=== PATIENT | male | born 1995 | race Caucasian/White ===

== ENCOUNTER 2016-09-20 11:14 | Emergency (ER) | payer OTHER ==
[~2016-09-20] VITALS: Ht 193 cm; Wt 86.4 kg
[~2016-09-20 11:14] MED LIST: OMEP40CA2 PO; VERA27.5; XYZASOL2 PO
[2016-09-20] MEDS ORDERED: AMOX875T2 (11:27)
[2016-09-20] MEDS ORDERED: NS 1,000 ML IV ONE (12:00)
[2016-09-20] MEDS ORDERED: ONDANSETRON 4MG/2ML VIAL (J2405) IV ONE (12:00)
[2016-09-20] MEDS ORDERED: KETOROLAC 30 MG/ML VIAL (J1885) IV ONE (12:00)
[2016-09-20 12:26] LABS: BASO # 0.1 K/mm3 (0.0-0.2); BASO % 1.1 % (0.0-1.0); EOS % 0.5 % (0.0-3.0); LARGE UNSTAINED CELL # 0.2 K/mm3 (0.0-0.4); LARGE UNSTAINED CELL % 1.4 % (0.0-4.0); LYMPH % 6.8 % (24.0-44.0); MEAN CORPUSCULAR HEMOGLOBIN 29.5 pg (27.0-33.0); MEAN CORPUSCULAR VOLUME 86.9 fl (80.0-96.0); MONO # 1.1 K/mm3 (0.0-0.8); MONO % 9.6 % (0.0-5.0); NEUTROPHILS # 9.4 K/mm3 (1.8-7.7); NEUTROPHILS % 80.6 % (36.0-66.0); PLATELET COUNT, AUTOMATED 204 k/mm3 (150-450); RED CELL DISTRIBUTION WIDTH 12.6 % (11.5-14.5); WHITE BLOOD COUNT 11.7 K/mm3 (4.0-10.0)
[2016-09-20 12:48] LABS: CONTROL LINE MONO INT CTR LINE PRESENT
[2016-09-20 12:54] LABS: ALBUMIN 4.3 GM/DL (3.2-5.2); ALBUMIN/GLOBULIN RATIO 1.34 (1.00-1.93); ALKALINE PHOSPHATASE 105 U/L (45-117); ALT/SGPT 28 U/L (12-78); ANION GAP 9 MEQ/L (8-16); AST/SGOT 14 U/L (15-37); BILIRUBIN,DIRECT 0.3 MG/DL (0.0-0.2); BILIRUBIN,TOTAL 1.1 MG/DL (0.2-1.0); BLOOD UREA NITROGEN 9 MG/DL (7-18); CALCIUM LEVEL 9.4 MG/DL (8.5-10.1); CARBON DIOXIDE LEVEL 27 MEQ/L (21-32); CHLORIDE LEVEL 103 MEQ/L (98-107); CREATININE FOR GFR 0.99 MG/DL (0.70-1.30); GLUCOSE, FASTING 105 MG/DL (70-105); POTASSIUM SERUM 4.1 MEQ/L (3.5-5.1); SODIUM LEVEL 139 MEQ/L (136-145); TOTAL PROTEIN 7.5 GM/DL (6.4-8.2)
[2016-09-20 13:20] VITALS: BP 127/60
== END 2016-09-20 13:26 | disposition home or self-care (01) ==
LOC: M ED 11:14
DX: B34.9 Viral infection, unspecified (principal); K21.9 Gastro-esophageal reflux disease without esophagitis; J30.2 Other seasonal allergic rhinitis; F17.200 Nicotine dependence, unspecified, uncomplicated; Z79.899 Other long term (current) drug therapy; Z88.2 Allergy status to sulfonamides
CPT/HCPCS: 80048; 80076; 85025; 86308; 96361; 96374; 96375; 99283; J1885; J2405

== ENCOUNTER 2017-09-17 13:41 | Emergency (ER) | payer OTHER ==
[2017-09-17] MEDS: dexameTHASONE 20 MG/5 ML VIAL (J1100) IM (15:41)
[2017-09-17 16:17] LABS: CONTROL LINE MONO INT CTR LINE PRESENT; MONO SCRN NEGATIVE (NEGATIVE)
== END 2017-09-17 16:02 | disposition home or self-care (01) ==
LOC: M ED 13:41
DX: J02.9 Acute pharyngitis, unspecified (principal); L08.9 Local infection of the skin and subcutaneous tissue, unspecified; Z79.899 Other long term (current) drug therapy; Z88.1 Allergy status to other antibiotic agents; Z88.2 Allergy status to sulfonamides
CPT/HCPCS: J1100

== ENCOUNTER → 2019-01-29 | Outpatient (REF) | payer OTHER ==
[~2019-01-29] MED LIST changes: +AMOX875T2; +BACT2CRE TOP; -OMEP40CA2 PO; +OMEP40CA97 PO
[2019-01-29 21:12] LABS: INFLUENZA A AMPLIFICATION NEGATIVE (NEGATIVE); INFLUENZA B AMPLIFICATION NEGATIVE (NEGATIVE)
== END ==
LOC: M LAB REF 09:27
PROVIDERS: ATTEND Physician Assistant
DX: R50.9 Fever, unspecified (principal)

== ENCOUNTER 2020-02-13 23:03 | Emergency (ER) | payer OTHER ==
[~2020-02-13] VITALS: Ht 193 cm; Wt 95.5 kg
[2020-02-14] MEDS ORDERED: KETOROLAC 60MG 2ML VIAL IM ONE (01:30)
[2020-02-14] MEDS ORDERED: ALBUTEROL 90 MCG/ACT 8GM HFA INHALER INH ONE (01:30)
[2020-02-14] MEDS ORDERED: BENZONATATE 100 MG CAP PO ONE (01:30)
--- NOTE | 2020-02-14 01:55 | REPVR ---
PROCEDURE INFORMATION: Exam: XR Chest, 1 View Exam date and time: 02/14/2020 1:30 AM Age: 24 years old Clinical indication: Other: Cough; Additional info: Cough, fever, SOB TECHNIQUE: Imaging protocol: XR of the chest Views: 1 view. COMPARISON: CR Chest, 1 view 09/30/2015 10:01 AM FINDINGS: Lungs: Degree of lung inflation is normal. No evidence of pulmonary edema. No focal consolidation or parenchymal lung mass. Pleural space: No pleural effusion or pneumothorax. Heart/Mediastinum: Cardiac silhouette appears normal. No adenopathy or hilar mass. Bones/joints: Osseous structures show no concerning abnormality. IMPRESSION: No acute or focal cardiopulmonary process. Electronically signed by: Sorin Tejada On 02/14/2020 01:56:14 AM
[2020-02-14 02:35] LABS: RSV AMPLIFICATION NEGATIVE (NEGATIVE)
[2020-02-14] MEDS ORDERED: TESS100C PO (04:13)
[2020-02-14 04:35] VITALS: BP 126/81
== END 2020-02-14 04:35 | disposition home or self-care (01) ==
LOC: M ED 23:03
DX: J06.9 Acute upper respiratory infection, unspecified (principal); K21.9 Gastro-esophageal reflux disease without esophagitis; Z79.899 Other long term (current) drug therapy; Z88.1 Allergy status to other antibiotic agents; Z88.2 Allergy status to sulfonamides; F17.210 Nicotine dependence, cigarettes, uncomplicated
CPT/HCPCS: 71045; 87631; 94640; 96372; 99283; J1885

== ENCOUNTER → 2021-05-20 | Outpatient (REF) | payer OTHER ==
[~2021-05-20] MED LIST changes: +OMEP40CA4 PO; -OMEP40CA97 PO; +TESS100C PO
== END ==
LOC: M LAB REF 12:23
PROVIDERS: ATTEND Physician Assistant
DX: R50.9 Fever, unspecified (principal)